=== PATIENT | male | born 1950 | race Caucasian/White ===

== ENCOUNTER 2017-04-30 13:26 | Emergency (ER) | payer MEDICARE, OTHER ==
[~2017-04-30] VITALS: Ht 175.3 cm; Wt 142.0 kg
[2017-04-30] MEDS ORDERED: DOXYCYCLINE 10100 M1 PO (13:44)
[2017-04-30] MEDS ORDERED: CLONIDINE0.1 PO (13:45)
[2017-04-30] MEDS ORDERED: ALDACTONE25 MG PO (13:45)
[2017-04-30] MEDS ORDERED: COZAAR 25 MG TA25 M1 PO (13:45)
[2017-04-30] MEDS ORDERED: CLONIDINE HCL0.3 M3 PO (13:46)
[2017-04-30] MEDS ORDERED: VERAPAMIL E.R240 M1 PO (13:46)
[2017-04-30 15:19] VITALS: BP 169/96
== END 2017-04-30 15:20 | disposition home or self-care (01) ==
LOC: M.ERS 13:26
DX: M54.5 Low back pain (principal); G89.29 Other chronic pain; I10 Essential (primary) hypertension; Z88.8 Allergy status to other drugs, medicaments and biological substances